=== PATIENT | male | born 1955 | race Caucasian/White ===

== ENCOUNTER 2019-03-28 11:28 | Emergency (ER) | payer MEDICARE ==
[~2019-03-28] VITALS: Ht 177.8 cm; Wt 100.0 kg
[2019-03-28] MEDS ORDERED: ONDANSETRON HCL 4MG/2ML INJ IV STA (11:47)
[2019-03-28] MEDS ORDERED: SODIUM CHLORIDE 0.9% 1,000 ML IV ONE (11:47)
[2019-03-28] MEDS ORDERED: KETOROLAC 30MG/ML VIAL IV STA (11:47)
[2019-03-28] MEDS ORDERED: LOPERAMIDE HCL 2MG CAPSULE PO ONE (12:00)
[2019-03-28 12:03] LABS: HEMATOCRIT. 47.9 % (42.0-52.0); HEMOGLOBIN. 15.9 g/dL (14.0-18.0); MEAN CORPUSCULAR HEMOGLOBIN 30.5 pg (28.0-32.0); MEAN CORPUSCULAR VOLUME 92.1 fL (80.0-94.0); MEAN PLATELET VOLUME 9.6 fl (7.4-10.4); PLATELET 210 x1000/uL (130-400); RED CELL DISTRIBUTION WIDTH 13.9 % (11.6-14.6)
[2019-03-28 12:08] LABS: CHLORIDE 109 mEq/L (98-107)
[2019-03-28 12:09] LABS: PROTHROMBIN TIME 29.4 sec (9.6-11.0)
[2019-03-28 12:29] LABS: PLATELET ESTIMATE NORMAL
[2019-03-28 13:51] VITALS: BP 113/79
== END 2019-03-28 14:17 | disposition home or self-care (01) ==
LOC: ER 11:28
DX: R10.84 Generalized abdominal pain (principal); R11.10 Vomiting, unspecified; R19.7 Diarrhea, unspecified
CPT/HCPCS: 36415; 80053; 83690; 85025; 85610; 96361; 96374; 99283; J1885; J7030